=== PATIENT | male | born 1955 | race Caucasian/White ===

== ENCOUNTER 2024-12-09 11:16 | Outpatient (CLI) | payer MEDICARE, SELFPAY ==
--- OUTSIDE RECORDS SUMMARY | 2024-12-09 11:27 | XMS_ITS | Clinical Summary ---
Author Organization [facility] Address [address] [place] [address] Care Team Providers Care Mexican Food Machine Tender Name Role Phone Vinny Childs MD Primary Care Provider [phone] Allergies No known active allergies Medications metoprolol (LOPRESSOR) 25 mg tablet Take 12.5 mg by mouth daily 1 08/08/2018 Active Active Problems Problem Noted Date Diagnosed Date Nicotine dependence with current use 09/01/2018 Overview (09/01/2018): Patient is a current smoker. Patient smokes half pack daily. Patient has been smoking for 15 years. Assessment & Plan (12/01/2018 3:50 PM CDT): Patient continued to smoke. He was advised to quit smoking. Assessment & Plan (09/01/2018 5:50 PM CDT): Patient was advised to quit smoking. Aortic ectasia, thoracic 12/02/2017 Overview (09/01/2018): Follow-up on CT scan of the chest in 9 months. Lung nodule 01/14/2016 Overview (09/01/2018): CT scan of the chest shows stable pulmonary nodules for about 2 years. We'll repeat a CT scan of the chest in 9 months to reevaluate lung nodules . Assessment & Plan (12/01/2018 3:51 PM CDT): Pulmonary nodules have been stable for 2 years. Assessment & Plan (09/01/2018 5:50 PM CDT): Repeat CT scan of the chest in November 2018. Immunizations Immunization Administration Dates Next Due Influenza, Trivalent, Preservative Free, Intramu scular 01/08/2015 Surgical History Surgery Date Site/Laterality Comments HERNIA REPAIR US ABDOMEN COMPLETE W LIVER DOPPLER (C) 10/02/2017 R ight Medical History Medical History Date Comments Nicotine dependence with current use 09/01/2018 Patient is a current smoker. Patient smokes half pack daily. Patient has been smoking for 15 years. 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 Gender Identity Not on file Sexual Orientation Not on file Obstetrics History Last Filed Vital Signs Vital Sign Reading Time Taken Comments Blood Pressure 118/60 12/01/2018 10:22 AM CDT Pulse 66 12/01/2018 10:22 AM CDT Temperature 36.7 C (98 F) 12/01/2018 10:22 AM CDT Respiratory Rate 18 12/01/2018 10:22 AM CDT Oxygen Saturation 96% 12/01/2018 10:22 AM CDT Inhaled Oxygen Concentration - - Weight 83.9 kg (185 lb) 12/01/2018 10:22 AM CDT Height 182.9 cm (6') 12/01/2018 10:22 AM CDT Body Mass Index 25.09 12/01/2018 10:22 AM CDT Plan of Treatment Health Maintenance Due Date Last Done Comments Colon Cancer Screening-Colonoscopy 1955 Depression Screening 1955 Fall Risk Assessment 1955 Hepatitis C Screening 1955 Prostate Cancer Screening-PSA 1955 Hepatitis B Screening 10/16/1975 Pneumococcal vaccine 65+ (1 of 2 - PCV) 1976 Zoster Vaccine (1 of 2) 10/16/2007 Abdominal Aortic Aneurysm (A AA) Screen 2022 10/01/2017, 10/01/2017 Well Visit 65+ 2022 DTaP/Tdap/Td Vaccine (2 - Td or Tdap) 06/27/2023 06/26/2013 Covid-19 Vaccine (2024-2 6 season) 2024 12/22/2021, 08/12/2021, 03/02/2021, Additional history exists Influenza Vaccine (#1) 2024 01/12/2022, 2014 Procedures Procedure Name Priority Date/Time Associated Diagnosis Comments US ABDOMINAL AORTA Routine 10/01/2017 12 :00 AM CDT from Last 3 Months or Most Recently Relevant to Health Maintenance Results * US Abdominal Aorta (10/01/2017 12:00 AM CDT) Anatomical Region Laterality Modality Abdomen N/A Ultrasound 10/01/2017 Impressions 10/02/2017 3:20 PM CDT No abdominal aortic aneurysm. THIS IS AN ELECTRONICALLY VERIFIED FINAL REPORT 10/02/2017 3:17 PM - Electronically signed by Shaka Enciso M.D. HL: JUAN JOSE Report ID: [id number] Reading Location: [id number] [EOD] Narrative 10/02/2017 3:20 PM CDT EXAM DESCRIPTION: US Abdominal Aorta; US Duplex Scan Complete REASON FOR STUDY: Screening aorta examination. History of ascending thoracic aortic aneurysm. COMPARISON: None available. TECHNIQUE: Static and dynamic images acquired of the aorta and stored on PACS. Selected color Doppler and spectral images recorded. FINDINGS: AORTIC CALIBER MAXIMAL PROXIMAL: 3.0 x 2.5 cm. MID: 2.5 x 2.0 cm. DISTAL: 1.6 x 1.6 cm. ILIAC DIAMETER RIGHT: 9 mm cm. LEFT: 8 mm cm. OTHER: No other significant finding. Procedure Note Provider, MD Brian - 08/06/2020 EXAM DESCRIPTION: US Abdominal Aorta; US Duplex Scan Complete REASON FOR STUDY: Screening aorta examination. History of ascendingthoracic aortic aneurysm. COMPARISON: None available. TECHNIQUE: Static and dynamic images acquired of the aorta and stored on PACS. Selected color Doppler and spectral images recorded. FINDINGS: AORTIC CALIBER MAXIMAL PROXIMAL: 3.0 x 2.5 cm. MID: 2.5 x 2.0 cm. DISTAL: 1.6 x 1.6 cm. ILIAC DIAMETER RIGHT: 9 mm cm. LEFT: 8 mm cm. OTHER: No other significant finding. IMPRESSION: No abdominal aortic aneurysm. THIS IS AN ELECTRONICALLY VERIFIED FINAL REPORT 10/02/2017 3:17 PM - Electronically signed by Shaka Enciso M.D. HL: JUAN JOSE Report ID: [id number] Reading Location: [place] [id number] [EOD] us Natacha Espinosa MD IM US PROCEDURES Final Result from Last 3 Months or Most Recently Relevant to Health Maintenance Insurance [facility] ANTHEM MEDICARE HMO PPO Care Teams Mexican Food Machine Tender Relationship Specialty Start Date End Date Vinny Childs MD [address] [facility] [address] [place] [address] PCP - General Internal Medicine 04/06/22
--- OUTSIDE RECORDS SUMMARY | 2024-12-09 11:27 | XMS_ITS | Clinical Summary ---
Author Organization [facility] Address [facility] [place] [address] Care Team Providers Care Ends Breakage Clerk Name Role Phone Vinny Childs MD Primary Care Provider [phone] Allergies Active Allergy Reactions Criticality Noted Date Comments Ragweed Sneezing Low 04/25/2024 Medications levothyroxine (SYNTHROID) 50 MCG tablet Take 1 tablet by mouth daily. 04/05/2022 Active losartan (COZAAR) 25 MG tablet Take 1 tablet (25 mg total) by mouth daily. Active lovastatin (MEVACOR) 20 MG tablet Take 1 tablet (20 mg total) by mouth nightly at bedtime. Active metoprolol succinate ER (TOPROL-XL) 25 MG 24 hr tablet Take 1 tablet (25 mg total) by mouth daily. Active Active Problems Problem Noted Date Diagnosed Date Nicotine dependence with current use 09/01/2018 Overview (04/19/2023): Patient is a current smoker. Patient smokes half pack daily. Patient has been smoking for 15 years. Last Assessment & Plan: Patient continued to smoke. He was advised to quit smoking. Smoker 10/07/2017 Thoracic aortic ectasia 02/19/2017 Overview (04/19/2023): Follow-up on CT scan of the chest in 9 months. Lung nodule 11/19/2015 Overview (04/19/2023): CT scan of the chest shows stable pulmonary nodules for about 2 years. We'll repeat a CT scan of the chest in 9 months to reevaluate lung nodules . Last Assessment & Plan: Pulmonary nodules have been stable for 2 years. Family History Medical History Relation Comments Liver cancer Brother 1 myocardial infarction Brother 2 Relation Status Comments Brother 1 Alive Brother 2 Social History Tobacco Use Types Packs/Day Years Used Date Smoking Tobacco: Every Day Cigarettes Smokeless Tobacco: Never Sex and Gender Information Value Date Recorded Sex Assigned at Male 04/18/2024 6:23 AM FINANCIAL SERVICES OFFICER Legal Sex Male 7:36 PM CDT Gender Identity Not on file Sexual Orientation Not on file Last Filed Vital Signs Vital Sign Reading Time Taken Comments Blood Pressure 130/80 04/25/2024 8:57 AM FINANCIAL SERVICES OFFICER Pulse 71 04/25/2024 8:57 AM FINANCIAL SERVICES OFFICER Temperature 36.2 C (97.1 F) 04/25/2024 8:57 AM FINANCIAL SERVICES OFFICER Respiratory Rate 18 04/25/2024 8:57 AM FINANCIAL SERVICES OFFICER Oxygen Saturation 97% 04/25/2024 8:57 AM FINANCIAL SERVICES OFFICER Inhaled Oxygen Concentration - - Weight 89.7 kg (197 lb 12.8 oz) 04/25/2024 8:57 AM FINANCIAL SERVICES OFFICER Height 182.9 cm (6') 04/25/2024 8:57 AM FINANCIAL SERVICES OFFICER Body Mass Index 26.83 04/25/2024 8:57 AM FINANCIAL SERVICES OFFICER Plan of Treatment Upcoming Encounters Date Type Department Care Team (Late st Contact Info) Description 04/18/2025 8:00 AM FINANCIAL SERVICES OFFICER Appointment [place] [place] [address] Alejandro Blanchard MD [facility]. [address] [place], [place] [id number] 04/24/2025 8:45 AM FINANCIAL SERVICES OFFICER Office Visit [facility], [address] [place], [place] [address] Alejandro Blanchard MD [facility]. [address] [place] [id number] Health Maintenance Due Date Last Done Comments Colorectal Cancer Screening Colonoscopy (10 Years) 1955 Hepatitis C 10/16/1975 Zoster Vaccines (1 of 2) 10/16/2007 DTaP, Tdap and Td Vaccines (2 - Td or Tdap) 06/27/2023 06/26/2013 COVID-19 Vaccine ( season) 2024 12/18/2022, 12/22/2021, 08/12/2021, Additional history exists Pneumococcal Vaccine: 50+ Years Completed 02/02/2023 RSV Immunization or 60+ Years Completed 02/02/2023 AAA SCREENING Completed 04/18/2024, 03/2023, 04/22/2023, Additional history exists Meningococcal B Vaccine Aged Out No l onger eligible based on patient's age to complete this topic Meningococcal Vaccine Aged Out No garrick shiela eligible based on patient's age to complete this topic RSV Immunizations Under 20 Months Aged Out No longer eligible based on patient's age to complete this topic Procedures Procedure Name Priority Date/Time Associated Diagnosis Comments CTA CHEST Routine 04/18/2024 7:17 AM FINANCIAL SERVICES OFFICER Aneurysm of ascending aorta without rupture from Last 3 Months or Most Recently Relevant to Health Maintenance Results * CTA CHEST (04/18/2024 7:17 AM FINANCIAL SERVICES OFFICER) Anatomical Region Laterality Modality Chest Computed Tomogra phy 04/24/2024 12:4 9 PM FINANCIAL SERVICES OFFICER Impressions 04/24/2024 3:04 PM FINANCIAL SERVICES OFFICER Impression: 1. Aneurysmal dilation of the ascending thoracic aorta, measuring 44 mm. Please see additional aortic measurements for further details. 2. There is a 5 mm pulmonary nodule in the right middle lobe. In a high risk individual, recommend noncontrast CT chest in 12 months may be obtained. 3. Mild pulmonary emphysema. The attending radiologist has reviewed the image(s) and agrees with the content of this report. Ordered By: ALEJANDRO BLANCHARD Interpreted By: Callum Wood MD, 04/24/2024 12:49 PM Narrative 04/24/2024 3:04 PM FINANCIAL SERVICES OFFICER [address] [address] Examination: CTA chest. Clinical Information: Aortic aneurysm Comparison:None available. Technique: IV contrast: 100 mL Isovue 370. Oral contrast: None. Technical comments: CTA of the chest was performed with precontrast and postcontrast arterial phase images of the chest. Coronal MIP images were submitted for evaluation. Dose reduction: This CT exam was performed using one or more of the following dose reduction techniques: Automated exposure control, adjustment of the mA and/or kV according to patient size, and/or use of iterative reconstruction technique. Findings: VASCULATURE Thoracic aorta: No intramural hematoma, dissection, or aneurysm. Aortic arch and brachiocephalic vessels: No high-grade stenosis, aneurysm, or dissection. Mild atheromatous calcifications of the thoracic aorta. Aorta: (Measurements made in millimeters) Sinus of Valsalva: 41 mm Sinotubular junction: 35 mm Ascending (at the level of the right main pulmonary artery):44 mm At the level of the left subclavian artery origin: 31 mm Descending (at the level of the pulmonary artery bifurcation):28 mm Hiatus: 25 mm The pulmonary arteries are well-opacified and no intraluminal filling defect is identified. MEDIASTINUM Heart: Normal in size. No pericardial effusion. Coronary artery calcifications. Lymph nodes: No thoracic lymphadenopathy. LUNGS AND PLEURA Lungs: There is mild pulmonary emphysema. No focal lung consolidation. There is a 5 mm nodule in the right middle lobe (6/88). There is a 2 mm perifissural nodule along the right minor fissure (6/95). Sub-4 mm lung nodule in the left lung apex on image 26, series 7. Linear atelectasis/scarring in the lung bases. Pleura: No pleural effusion. UPPER ABDOMEN Unremarkable. BONES/SOFT TISSUES No significant lesion. Procedure Note Julio Armando MD - 04/24/[address] [place], [place] [address] Examination: CTA chest. Clinical Information: Aortic aneurysm Comparison:None available. Technique: IV contrast: 100 mL Isovue 370. Oral contrast: None. Technical comments: CTA of the chest was performed with precontrast andpostcontrast arterial phase images of the chest. Coronal MIP images weresubmitted for evaluation. Dose reduction: This CT exam was performed using one or more of thefollowing dose reduction techniques: Automated exposure control,adjustment of the mA and/or kV according to patient size, and/or use ofiterative reconstruction technique. Findings: VASCULATURE Thoracic aorta: No intramural hematoma, dissection, or aneurysm. Aortic arch and brachiocephalic vessels: No high-grade stenosis, aneurysm,or dissection. Mild atheromatous calcifications of the thoracic aorta. Aorta: (Measurements made in millimeters) Sinus of Valsalva: 41 mm Sinotubular junction: 35 mm Ascending (at the level of the right main pulmonary artery):44 mm At the level of the left subclavian artery origin: 31 mm Descending (at the level of the pulmonary artery bifurcation):28 mm Hiatus: 25 mm The pulmonary arteries are well-opacified and no intraluminal fillingdefect is identified. MEDIASTINUM Heart: Normal in size. No pericardial effusion. Coronary arterycalcifications. Lymph nodes: No thoracic lymphadenopathy. LUNGS AND PLEURA Lungs: There is mild pulmonary emphysema. No focal lung consolidation.There is a 5 mm nodule in the right middle lobe (6/88). There is a 2 mmperifissural nodule along the right minor fissure (6/95). Sub-4 mm lungnodule in the left lung apex on image 26, series 7. Linearatelectasis/scarring in the lung bases. Pleura: No pleural effusion. UPPER ABDOMEN Unremarkable. BONES/SOFT TISSUES No significant lesion. Impression: 1. Aneurysmal dilation of the ascending thoracic aorta, measuring 44 mm.Please see additional aortic measurements for further details. 2. There is a 5 mm pulmonary nodule in the right middle lobe. In a highrisk individual, recommend noncontrast CT chest in 12 months may beobtained. 3. Mild pulmonary emphysema. The attending radiologist has reviewed the image(s) and agrees with thecontent of this report. Ordered By: ALEJANDRO BLANCHARD Interpreted By: Callum Wood MD, 04/24/2024 12:49 PM us Alejandro Blanchard MD CT Final Result from Last 3 Months or Most Recently Relevant to Health Maintenance Insurance [facility] Care Teams Ends Breakage Clerk Relationship Specialty Start Date End Date Vinny Childs MD [address] [facility] [address] [place] [address] PCP - General INTERNAL MEDICINE 04/28/22
--- OUTSIDE RECORDS SUMMARY | 2024-12-09 11:27 | XMS_ITS | Encounter Summary ---
Author Organization [facility] Address [address] [place] [address] Care Team Providers Care Home Health Lpn Name Role Phone Vinny Childs MD Primary Care Provider Encounter Details Date Type Department Care Team (Late st Contact Info) Description 02/08/2024 Community Orders [facility] EpicCare Link Vinny Childs MD [address] [facility] [address] [place] [address] Social History Tobacco Use Types Packs/Day Years Used Date Smoking Tobacco: Every Day Cigarettes 0.5 16 Smokeless Tobacco: Never Sex and Gender Information Value Date Recorded Sex Assigned at Not on file Legal 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
[2024-12-09 12:05] LABS: Hematocrit 44.8 % (42.0-52.0); Hemoglobin 15.1 g/dL (14.0-18.0); Mean Corpuscular HGB Conc 33.7 g/dl (32-36); Mean Corpuscular Hemoglobin 30.8 pg (26-34); Mean Corpuscular Volume 91.4 fl (80-100); Platelet Count Result 293 k/mm3 (150-375); Red Blood Count 4.90 M/mm3 (4.6-6.20); White Blood Count 6.7 K/mm3 (4.5-10.0)
[2024-12-09 12:11] LABS: Add Urine Microscopic? YES; Appearance Urine Clear (Clear); Glucose Urine UA Negative (Negative); Leukocyte Esterase Ur Negative LEU/UL (Negative); Nitrate Urine Negative (Negative); Non Pathogenic Casts 0-2; Specific Grav Ur 1.003 (1.001-1.035)
[2024-12-09 12:26] LABS: Alanine Aminotransferase 254 U/L (6-50); Albumin Level 4.2 g/dL (3.5-5.1); Alkaline Phosphatase 80 U/L (38-126); Anion Gap 8 mmol/L (4-12); Aspartate Amino Transferase 138 U/L (17-59); Bilirubin,Total 0.5 mg/dL (0.2-1.3); Blood Urea Nitrogen 9 mg/dL (9-20); Calcium 8.8 mg/dL (8.4-10.2); Carbon Dioxide 23 mmol/L (22-30); Chloride 103 mmol/L (98-107); Creatine Kinase 69 U/L (55-170); Estimated Glomerular Filt Rate > 60; Glucose 123 mg/dL (65-110); Potassium 4.1 mmol/L (3.4-5.0); Sodium 134 mmol/L (137-145); Total Protein 7.7 g/dL (6.3-8.2)
[2024-12-09 13:01] LABS: Prostate Specific Antigen 0.9 ng/mL (< OR = 4.0)
== END 2024-12-09 11:17 | disposition home or self-care (01) ==
PROVIDERS: PCP Internal Medicine; Visit Provider Internal Medicine
DX: Z12.5 Encounter for screening for malignant neoplasm of prostate (principal); R82.998 Other abnormal findings in urine; I10 Essential (primary) hypertension
CPT/HCPCS: 36415; 80053; 81001; 82550; 84153; 85027; G0103